=== PATIENT | male | born 1985 | race Hispanic/Latino ===

== ENCOUNTER 2019-05-31 13:21 | Emergency (ER) | payer OTHER ==
[2019-05-31] MEDS ORDERED: IBUPROFEN 600 MG TABLET ONE (14:07)
== END 2019-05-31 14:42 | disposition home or self-care (01) ==
LOC: EDSEX 13:21 → EDH 13:21
DX: S93.401A Sprain of unspecified ligament of right ankle, initial encounter (principal); X58.XXXA Exposure to other specified factors, initial encounter; Y93.89 Activity, other specified; Y92.488 Other paved roadways as the place of occurrence of the external cause; Y99.8 Other external cause status
CPT/HCPCS: 73610